=== PATIENT | female | born 2000 | race Caucasian/White ===

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

== ENCOUNTER 2018-04-24 23:35 | Emergency (ER) | payer OTHER ==
[2018-04-24 23:41] VITALS: BP 129/75
--- NOTE | 2018-04-24 23:54 | EDPHY ---
H & P Stated Complaint: Knife slipped cut left leg Time Seen by Provider: 04/24/18 23:51 HPI/ROS: HPI: This is a 18-year-old female who presents with Chief Complaint: Knife slipped cut left leg Location: Left calf Quality: Knife laceration Duration: Prior to arrival Signs and Symptoms: No bleeding, no radiation, no numbness, no weakness, no tingling, no incontinence, no decreased range of motion, no swelling, no pain, no fever Timing: Acute Severity: [id number] Context: Patient is a student at [employer], reports up-to- date on tetanus, presents with complaints of a knife falling off a cutting board while she was cutting limes for [employer]. She reports that the knife went directly into her left calf. The area started to bleed and she felt moderate pain. Currently at this moment she only complains of mild pain. Bleeding stopped with direct pressure. Denies any radiation, weakness, paresthesias, inability to ambulate. Modifying Factors: Direct pressure Comment: ROS: A comprehensive 10 system review of systems is otherwise negative aside from elements mentioned in the history of present illness. MEDICAL/SURGICAL/SOCIAL HISTORY: Medical history: Anemia, left kidney issues Surgical history: Denies Social history:. Student at [employer], nonsmoker CONSTITUTIONAL: Polite and cooperative young adult white female, awake and alert, no obvious distress HEENT: Atraumatic and normocephalic. NECK: supple EXTREMITIES: 2/2 pulses, strength 5/5, left medial calf 3.5 cm C-shaped, simple , superficial laceration no active bleeding. DIP/PIP/MCP flexion/extension intact with good light touch sensation. no deformities, no clubbing, no cyanosis or edema. NEUROLOGICAL: no focal neuro deficits. GCS 15. Light touch sensation intact. SKIN: Warm and dry, no erythema. no rash. Good capillary refill. Source: Patient Exam Limitations: No limitations - Personal History LMP (Females 10-55): 15-21 Days Ago - Medical/Surgical History Hx Asthma: No Hx Chronic Respiratory Disease: No Hx Diabetes: No Hx Cardiac Disease: No Hx Renal Disease: No Hx Cirrhosis: No Hx Alcoholism: No Hx HIV/AIDS: No Hx Splenectomy or Spleen Trauma: No Other PMH: anemia, L kidney issue - Social History Smoking Status: Never smoked Constitutional: Initial Vital Signs Temperature (C) 36.7 C 04/24/18 23:38 Heart Rate 122 H 04/24/18 23:38 Respiratory Rate 16 04/24/18 23:38 Blood Pressure 129/75 H 04/24/18 23:38 O2 Sat (%) 94 04/24/18 23:38 O2 Delivery Mode Room Air Allergies/Adverse Reactions: No Known Allergies Allergy (Unverified 12/05/17 11:40) Home Medications: Medication Instructions Recorded NK [No Known Home Meds] 12/05/17 Medical Decision Making Procedures: Procedure: Laceration repair. Verbal consent was obtained from the patient. The 3.5 cm, simple, superficial laceration on the left calf was anesthetized in the usual fashion using 10 mL of 1% lidocaine with epinephrine. The wound was irrigated, draped and explored to its base with a gloved finger. There were no deep structures involved. No tendon injury was identified. The wound was repaired with #7, 4-0 Prolene. Good hemostasis was achieved and patient tolerated procedure well. Clean sterile dressing applied. The procedure was performed by myself. ED Course/Re-evaluation: Tetanus status is up-to-date. Local anesthesia provided and copiously irrigated #7 Sutures used to close laceration Written and verbal wound care instructions provided Clean sterile dressing placed. No signs of neurovascular compromise/tenting of skin/compartment syndrome/ extremities and joints examined above and below area of concern and are neurovascularly intact. This patient was seen under the supervision of my secondary supervising physician. I evaluated care for this patient independently. Discussed this patient with Dr. Velasco. Differential Diagnosis: Differential diagnosis includes but is not limited to foreign body, laceration, nerve injury, ligament injury, muscle injury. Departure - Departure Disposition: Home, Routine, Self-Care Clinical Impression: Laceration of left calf without complication Qualifiers: Encounter type: initial encounter Qualified Code(s): S81.812A - Laceration without foreign body, left lower leg, initial encounter Condition: Good Instructions: Care For Your Stitches (ED), Laceration (ED) Additional Instructions: Keep the dressing dry and in place for 48 hours. After 48 hours, you may remove the dressing; wash the site daily with mild soap and water; then pat dry. Take Tylenol 650 mg every 4 hours and/or Ibuprofen 600 mg every 8 hours with food as needed for pain. Wound Care Follow-Up: Removal of sutures in [10-14] days. Suture removal is complimentary in uncomplicated cases. Infection or abnormal findings would require reevaluation by the MD. In that case, you may be billed. Return to the ER immediately if you experience redness, red streaks, have fevers /chills, flu like symptoms, limited range of motion, or any other symptoms that concern you. Referrals: GWENDOLYN Jones,. [Clinic] - As per Instructions
== END 2018-04-25 00:16 | disposition home or self-care (01) ==
PROC: 0HQKXZZ Repair Right Lower Leg Skin, External Approach (ICD-10-PCS; principal; 2018-04-25)
DX: S81.812A Laceration without foreign body, left lower leg, initial encounter (principal); W26.0XXA Contact with knife, initial encounter; Y93.G1 Activity, food preparation and clean up; Y99.8 Other external cause status